=== PATIENT | male | born 1955 | race Caucasian/White ===

== ENCOUNTER → 2018-09-23 | Outpatient (CLI) | payer BC ==
--- NOTE | 2018-09-23 08:01 | US ---
EXAMINATION TYPE: US duplex aorta DATE OF EXAM: 09/23/2018 COMPARISON: NONE CLINICAL HISTORY: Z13.6 screening for cardiovascular disease. Pt states previous smoker, screening fo r AAA EXAM MEASUREMENTS: Abdominal Aorta: Proximal: 2.3 x 2.4 cm Mid: 2.0 x 2.4 cm Distal: 1.8 x 2.1 cm Bifurcation: JORDAN: 1.4 x 1.5 cm ALESHA: 1.3 x 1.6 cm Mild atherosclerosis is seen of the abdominal aorta. IMPRESSION: No sonographic evidence of abdominal aortic aneurysm within the visualized abdominal aort a. Mild atherosclerosis.
== END | disposition home or self-care (01) ==
LOC: RADUSWWP 06:53
PROVIDERS: ATTEND Family Medicine
DX: I70.0 Atherosclerosis of aorta (principal)
CPT/HCPCS: 93979

== ENCOUNTER → 2021-12-04 | Outpatient (CLI) | payer MEDICARE ==
--- NOTE | 2021-12-04 20:55 | CA ---
Stress Echo Report Antony Campa Age: 66 Gender: M : 1955 Exam Date: 12/04/2021 09:26 Exam Location: [facility] Ht (in): 67 Wt (lb): 170 Ordering Physician: Yoni Law MD Referring Physician: YONI LAW,, Poly Area Supervisor: Leana Ji RDCS Technologist Procedure CPT: Indication: I25.2 OLD MYOCARDIAL INFARCTION ICD-9 Codes: Rhythm: Patient History: History of DC and hypertension Cardiac Medications: Medications in past 24 hours: Contrast: Stress Results Protocol: Ole Total dose(mL): Exercise Duration (min:sec): Max ST Depression (mm): Angina Score: Alvarez Score: METS: 10.9 Resting HR: 59 Resting BP: 149 / 80 Peak HR: 143 Peak BP: 188 / 71 Max Predicted HR: 152 94 % Max Predicted HR Target HR: 129 Double Product: 48831 Stress Summary: The patient's target heart rate was achieved BP Response: Reason for Termination: Cardiac Symptoms: Test terminated after reaching target heart rate (85% max predicted) ECG Analysis Resting ECG: Stress ECG: Arrhythmia: Echo Analysis Resting Echo: Peak Echo Analysis: MEASUREMENTS (Male/Female) Normal Values CONCLUSIONS Baseline heart rate 59 beats a minute, Baseline blood pressure 149/80 mmHg Twelve-lead EKG shows sinus rhythm with normal ST segments and 80 mL of the left bundle branch block morphology Patient exercised a Ole protocol for Minutes achieving a peak heart rate of 143 beats a minute Normal blood pressure response Patient continued to have frequent PVCs intermittently Mostly a left bundle branch block morphology Occasional PVC a right bundle branch block morphology No ECG evidence for ischemia No nonsustained or sustained VT Dr. Keith Agustin MD (Electronically Signed) Final Date: 04 December 2021 20:54
== END | disposition home or self-care (01) ==
LOC: RADNMMAIN 09:08
PROVIDERS: ATTEND Family Medicine
DX: I45.10 Unspecified right bundle-branch block (principal)
CPT/HCPCS: 93351

== ENCOUNTER 2022-12-29 22:31 | Emergency (ER) | payer MEDICARE ==
[2022-12-29] MEDS ORDERED: TOPICAL SKIN ADHESIVE 1 EACH AMP TOPICAL ONE (22:53)
[2022-12-29 23:00] VITALS: BP 166/74; PULSE 68; RESP 18; TEMP 97.8
--- NOTE | 2022-12-29 23:08 | ED ---
Wound/Laceration HPI - General Chief Complaint: Wound/Laceration Stated Complaint: Right Hand Lac Time Seen by Provider: 12/29/22 22:48 Source: patient Mode of arrival: ambulatory Limitations: no limitations - History of Present Illness Initial Comments: [id number] male presents to the emergency department today via private vehicle for evaluation of laceration to the right index finger. Patient reports that he was changing the replacement head on his electric toothbrush when he pulled the old toothbrush off ESL he sliced his finger on the plastic. Patient noted bleeding he applied direct pressure but continued to do so he came to the ER for evaluation. No numbness or tingling in the finger no weakness. - Related Data Home Medications Medication Instructions Recorded Confirmed Cholecalciferol [Vitamin D3] 1,000 unit PO DAILY 01/25/15 08/19/15 Naproxen Sodium [Aleve] 220 mg PO DAILY PRN 01/25/15 08/19/15 Allergies Allergy/AdvReac Type Severity Reaction Status Date / Time venom-honey bee AdvReac Swelling Verified 08/14/15 15:13 [bee venom (honey bee)] Review of Systems ROS Statement: Those systems with pertinent positive or pertinent negative responses have been documented in the HPI. ROS Other: All systems not noted in ROS Statement are negative. 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 Past Anesthesia/Blood Transfusion Reactions: No Reported Reaction Past Psychological History: No Psychological Hx Reported Smoking Status: Never smoker Past Alcohol Use History: Occasional Past Drug Use History: None Reported - Past Family History Mother Family Medical History: Cancer Additional Family Medical History / Comment(s): KIDNEY CANCER General Exam Limitations: no limitations General appearance: alert Head exam: Present: atraumatic Eye exam: Present: PERRL Respiratory exam: Absent: respiratory distress Rectal exam: Present: deferred Psychiatric exam: Present: normal affect, normal mood Skin exam: Present: other (Approximately 1 cm laceration on the palmar surface of the right index finger at the level of the PIP joint. No active bleeding) Course Vital Signs 12/29/22 22:34 Temperature 97.8 F Pulse Rate 68 Respiratory 18 Rate Blood Pressure 166/74 O2 Sat by Pulse 95 Oximetry Procedures - Laceration Laceration #1 Consent Obtained: verbal consent Indication: laceration Site: hand Size (cm): 1 Description: linear Depth: simple, single layer Pre-repair: wound explored Type of Sutures: other (Skin glue) Patient Tolerated Procedure: well, no complications Medical Decision Making - Medical Decision Making Was pt. sent in by a medical professional or institution ([facility]LE[facility] Lorenz, HEDIS ABSTRACTOR, urgent care, hospital, or senior care...) When possible be specific @ -No Did you speak to anyone other than the patient for history (EMS, parent, family, police, friend...)? What history was obtained from this source @ -No Did you review nursing and triage notes (agree or disagree)? Why? @ -I reviewed and agree with nursing and triage notes Were old charts reviewed (outside hosp., previous admission, EMS record, old EKG, old radiological studies, urgent care reports/EKG's, senior care records)? Report findings @ -No old charts were reviewed Differential Diagnosis (chest pain, altered mental status, abdominal pain women, abdominal pain men, vaginal bleeding, weakness, fever, dyspnea, syncope, headache, dizziness, GI bleed, back pain, seizure, CVA, palpatations, mental health, musculoskeletal)? @ -not applicable EKG interpreted by me (3pts min.). @ -As above X-rays interpreted by me (1pt min.). @ -None done CT interpreted by me (1pt min.). @ -None done U/S interpreted by me (1pt. min.). @ -None done What testing was considered but not performed or refused? (CT, X-rays, U/S, labs)? Why? @ -None What meds were considered but not given or refused? Why? @ -None Did you discuss the management of the patient with other professionals (professionals i.e. [facility] Lorenz, HEDIS ABSTRACTOR, lab, RT, psych nurse, rn social work, cover making machine operator, teacher, product safety officer, clinical case manager)? Give summary @ -No Was smoking cessation discussed for >3mins.? @ -No Was critical care preformed (if so, how long)? @ -No Were there social determinants of health that impacted care today? How? (Homelessness, low income, unemployed, alcoholism, drug addiction, transportation, low edu. Level, literacy, decrease access to med. care, [facility], rehab)? @ -No Was there de-escalation of care discussed even if they declined (Discuss DNR or withdrawal of care, Hospice)? DNR status @ -No What co-morbidities impacted this encounter? (DM, HTN, Smoking, COPD, CAD, Cancer, CVA, ARF, Chemo, Hep., AIDS, mental health diagnosis, sleep apnea, morbid obesity)? @ -None Was patient admitted / discharged? Hospital course, mention meds given and route, prescriptions, significant lab abnormalities, going to OR and other pertinent info. @ -Discharge Patient declined tetanus vaccine as he just had COVID and she goes vaccine last week and is still recovering. Undiagnosed new problem with uncertain prognosis? @ -No Drug Therapy requiring intensive monitoring for toxicity (Heparin, Nitro, Insulin, Cardizem)? @ -No Were any procedures done? @ -No Diagnosis/symptom? @ -default Acute, or Chronic, or Acute on Chronic? @ -default Uncomplicated (without systemic symptoms) or Complicated (systemic symptoms)? @ -default Side effects of treatment? @ -No Exacerbation, Progression, or Severe Exacerbation? @ -No Poses a threat to life or bodily function? How? (Chest pain, USA, MS, pneumonia, PE, COPD, DKA, ARF, appy, cholecystitis, CVA, Diverticulitis, Homicidal, Suicidal, threat to staff... and all critical care pts) @ -No Disposition Clinical Impression: Laceration Disposition: HOME SELF-CARE Instructions (If sedation given, give patient instructions): Skin Adhesive Care (ED) Is patient prescribed a controlled substance at d/c from ED?: No Referrals: Yoni Law MD [Primary Care Provider] - 1-2 days
== END 2022-12-29 23:20 | disposition home or self-care (01) ==
LOC: EC 22:31
DX: S61.210A Laceration without foreign body of right index finger without damage to nail, initial encounter (principal); W26.8XXA Contact with other sharp object(s), not elsewhere classified, initial encounter; Z91.030 Bee allergy status
CPT/HCPCS: 12001; 99282